=== PATIENT | female | born 1965 | race Caucasian/White ===

== ENCOUNTER 2016-09-03 17:26 | Emergency (ER) | payer MEDICAID ==
[~2016-09-03] VITALS: Ht 165.1 cm; Wt 56.5 kg
[2016-09-03 17:32] VITALS: Ht 165.1 cm; Wt 56.5 kg
[2016-09-03 18:29] LABS: ADD UMIC YES; URINE BILIRUBIN (Dip) NEGATIVE (NEGATIVE); URINE BLOOD (Dip) TRACE (NEGATIVE); URINE COLOR AMBER (YELLOW); URINE KETONES (Dip) NEGATIVE (NEGATIVE); URINE LEUKOCYTE ESTERASE (Dip) NEGATIVE (NEGATIVE); URINE NITRITE (Dip) POSITIVE (NEGATIVE); URINE TOTAL PROTEIN (Dip) 4+ (NEGATIVE); URINE UROBILINOGEN (Dip) 4.0 E.U./dL (0.1-1.0)
[2016-09-03] MEDS ORDERED: HYDROmorphONE 1 MG/ML SYG IV STA (18:46)
[2016-09-03] MEDS ORDERED: ONDANSETRON 4 MG INJ IV STA (18:46)
[2016-09-03 18:50] LABS: BACTERIA,URINE FEW; SQUAMOUS EPITHELIAL CELL,UR MODERATE
[2016-09-03 19:02] LABS: ADD SCAN DIFF NO
[2016-09-03 19:06] LABS: BASOPHILS % 0.3 % (0.0-2.0); EOSINOPHILS % 0.3 % (0.0-7.0); HEMATOCRIT 34.6 % (37.0-47.0); HEMOGLOBIN 10.9 g/dl (12.0-16.0); LYMPHOCYTES # 2.2 10^3/ul (0.8-2.9); LYMPHOCYTES % 18.1 % (15.0-51.0); MEAN CORPUSCULAR HEMOGLOBIN 24.7 pg (29.0-33.0); MEAN CORPUSCULAR HGB CONC 31.5 g/dl (32.0-37.0); MEAN CORPUSCULAR VOLUME 78.5 fl (82.0-101.0); MEAN PLATELET VOLUME 10.3 fl (7.4-10.4); MONOCYTE # 0.9 10^3/ul (0.3-0.9); MONOCYTES % 7.8 % (0.0-11.0); NEUTROPHIL # 8.8 10^3/ul (1.6-7.5); PLATELET COUNT 340 10^3/UL (140-415); RED BLOOD COUNT 4.41 10^6/ul (4.20-5.40); RED CELL DISTRIBUTION WIDTH 15.7 % (11.5-14.5)
[2016-09-03 19:12] LABS: ALBUMIN 4.9 g/dl (3.3-4.9); POTASSIUM 3.8 mmol/L (3.5-5.1)
[2016-09-03 19:14] LABS: BILIRUBIN,INDIRECT 0.6 mg/dl (0-1.1); BILIRUBIN,TOTAL 0.6 mg/dl (0.2-1.3); CREATININE 0.7 mg/dl (0.44-1.00)
[2016-09-03 19:15] LABS: ALBUMIN/GLOBULIN RATIO 1.36; CALCIUM 9.7 mg/dl (8.4-10.2); TOTAL PROTEIN 8.5 g/dl (6.1-8.1)
[2016-09-03] MEDS ORDERED: IOHEXOL 300MG/ML 150 ML BTL ONE (21:08)
[2016-09-03] MEDS ORDERED: SOD CHLORIDE 0.9% 100 ML ONE (21:08)
[2016-09-03] MEDS ORDERED: PHEN-538 PO (21:12)
[2016-09-03] MEDS ORDERED: CIPR500T4 PO (21:12)
[2016-09-03] MEDS ORDERED: HYDR-902 PO (21:12)
--- NOTE | 2016-09-03 21:14 | ERD ---
ER Documentation Chief Complaint Date/Time DATE: 09/03/16 TIME: 21:12 Chief Complaint URINARY RETENTION SENT BY PMD HPI This a 51-year-old female who is sent from clinic with a rule out of urinary retention. The patient states for 2 days she has had some urinary frequency and is having low volume voids. She says she feels like she cannot urinate at this moment. She is complaining of some moderate to severe suprapubic pain. No back pain no fever no nausea vomiting or other abdominal pain. Pain is a constant burning-like sensation without radiation. She had a urinalysis done at the clinic that showed urinary tract infection ROS All systems reviewed and are negative except as per history of present illness. Medications Home Meds Active Scripts Ciprofloxacin Hcl* (Ciprofloxacin Hcl*) 500 Mg Tablet, 500 MG PO BID for 10 Days , TAB Prov:ALTAF REN DO 09/03/16 Hydrocodone/Acetaminophen (Map[place]st 10-325 Tablet) 1 Each Tablet, 1 TAB PO Q6H Y for PAIN, #20 TAB Prov:ALTAF REN DO 09/03/16 Phenazopyridine Hcl* (Pyridium*) 200 Mg Tab, 200 MG PO TID Y for URINARY PAIN, # 6 TAB Prov:ALTAF REN DO 09/03/16 PMhx/Soc Medical and Surgical Hx: pt denies Surgical Hx History of Surgery: No Anesthesia Reaction: No Hx Neurological Disorder: No Hx Respiratory Disorders: No Hx Cardiac Disorders: Yes (htn) Hx Psychiatric Problems: No Hx Miscellaneous Medical Probl: Yes (hypothyroidism) Hx Alcohol Use: No Hx Substance Use: No Hx Tobacco Use: No Smoking Status: Never smoker FmHx Family History: No coronary disease Physical Exam Vitals Vital Signs Date Time Temp Pulse Resp B/P Pulse Ox O2 Delivery O2 Flow Rate FiO2 09/03/16 21:00 85 15 132/99 99 Room Air 09/03/16 20:00 84 15 127/97 97 Room Air 09/03/16 18:29 98.5 77 16 138/83 100 Room Air 09/03/16 17:32 98.6 87 18 131/79 98 Physical Exam Const: Well-developed, well-nourished Head: Atraumatic, normocephalic Eyes: Normal Conjunctiva, PERRLA, EOMI, normal sclera, no nystagmus ENT: Normal External Ears, Nose and Mouth, moist mucus membranes. Neck: Full range of motion. No meningismus, no lymphadenopathy. Resp: Clear to auscultation bilaterally, no wheezing, rhonchi, rales Cardio: Regular rate and rhythm, no murmurs, S1 S2 present Abd: Soft, tender suprapubic region with a palpable fibroid, non distended. Normal bowel sounds, no guarding or rebound, no pulsitile abdominal masses or bruits Skin: No petechiae or rashes, no ecchymosis , no maculopapular rash Back: No midline or flank tenderness Ext: No cyanosis, or edema, FROM x 4, normal inspection, neurovascularly intact x 4 Neur: Awake and alert, STR 5/5 x 4, sensation intact x 4, no focal findings, cerebellum intact Psych: Normal Mood and Affect Result Diagram: 09/03/16 1845 09/03/16 1845 Results 24 hrs Laboratory Tests Test 09/03/16 18:10 09/03/16 18:45 Urine Color JASMYNE Urine Clarity SLIGHTLY CLOUDY Urine pH 8.5 Urine Specific Frannie 1.015 Urine Ketones NEGATIVE Urine Nitrite POSITIVE Urine Bilirubin NEGATIVE Urine Urobilinogen 4.0 E.U./dL Urine Leukocyte Esterase NEGATIVE Urine Microscopic RBC 2-5/HPF Urine Microscopic WBC 5-10/HPF Urine Squamous Epithelial Cells MODERATE Urine Bacteria FEW Urine Hemoglobin TRACE Urine Glucose 0.1%% Urine Total Protein 4+ White Blood Count 12.010^3/ul Red Blood Count 4.4110^6/ul Hemoglobin 10.9g/dl Hematocrit 34.6% Mean Corpuscular Volume 78.5fl Mean Corpuscular Hemoglobin 24.7pg Mean Corpuscular Hemoglobin Concent 31.5g/dl Red Cell Distribution Width 15.7% Platelet Count 66914^3/UL Mean Platelet Volume 10.3fl Neutrophils % 73.0% Lymphocytes % 18.1% Monocytes % 7.8% Eosinophils % 0.3% Basophils % 0.3% Nucleated Red Blood Cells % 0.0/100WBC Neutrophils # 8.810^3/ul Lymphocytes # 2.210^3/ul Monocytes # 0.910^3/ul Eosinophils # 0.010^3/ul Basophils # 0.010^3/ul Nucleated Red Blood Cells # 0.010^3/ul Sodium Level 137mmol/L Potassium Level 3.8mmol/L Chloride Level 102mmol/L Carbon Dioxide Level 22mmol/L Anion Gap 17 Blood Urea Nitrogen 9mg/dl Creatinine 0.70mg/dl Glucose Level 86mg/dl Calcium Level 9.7mg/dl Total Bilirubin 0.6mg/dl Direct Bilirubin 0.00mg/dl Indirect Bilirubin 0.6mg/dl Aspartate Amino Transf (AST/SGOT) 24IU/L Alanine Aminotransferase (ALT/SGPT) 22IU/L Alkaline Phosphatase 85IU/L Total Protein 8.5g/dl Albumin 4.9g/dl Globulin 3.60g/dl Albumin/Globulin Ratio 1.36 Current Medications Medications (Trade) Dose Ordered Sig/Mary Route PRN Reason Start Time Stop Time Status Last Admin Dose Admin Hydromorphone HCl (Dilaudid) 1 mg ONCE STAT IV 09/03/16 18:46 09/03/16 18:48 DC 09/03/16 18:55 Ondansetron HCl (Zofran Inj) 4 mg ONCE STAT IV 09/03/16 18:46 09/03/16 18:48 DC 09/03/16 18:54 IV Flush 10 ml 10 ml STK-MED ONCE .ROUTE 09/03/16 21:08 09/03/16 21:09 DC Sodium Chloride (NS) 100 ml @ ud STK-MED ONCE .ROUTE 09/03/16 21:08 09/03/16 21:09 DC Iohexol (Omnipaque 300mg/ ml) 150 ml STK-MED ONCE .ROUTE 09/03/16 21:08 09/03/16 21:09 DC Procedures/MDM Schaefer catheter was placed 9 25 cc of urine was expressed. She is given pain control intravenously. Patient had a CT scan of the abdomen and pelvis which is currently pending of his normal will discharge home with Pyridium, Maplecrest and Cipro for UTI/cystitis. Departure Diagnosis: Primary Impression: Cystitis Condition: Stable Patient Instructions: ALTAF Perez DO Sep 03, 2016 21:14
--- NOTE | 2016-09-03 22:58 | RADRPT ---
PROCEDURE: CT Abdomen and pelvis with contrast. CLINICAL INDICATION: Abdominal pain. TECHNIQUE: CT scan of the abdomen and pelvis with contrast was performed on a multi-detector high -resolution CT scanner. The patient was scanned following the uncomplicated intravenous administrat ion of 100 cc of Omnipaque 300. Coronal and sagittal reformatted images were obtained from the axia l source images. Images were reviewed on a high-resolution PACS workstation. One or more of the following dose reduction techniques were used: - Automated exposure control. - Adjustment of the mA and/or kV according to patient size. - Use of iterative reconstruction technique. Exam CTD/vol = 7.49 mGy. Total exam DLP = 385.85 mGy-cm. COMPARISON: None. FINDINGS: Evaluation of the lung bases demonstrates mild bibasilar atelectasis. Abdomen: The liver is normal in size. There is no focal mass or dilatation of the biliary tree. T he gallbladder is not distended. The spleen, pancreas and bilateral adrenal glands are within laura l limits. Bilateral kidneys are normal in size with symmetric enhancement. There is no focal renal mass identified. There is mild to moderate right-sided hydronephrosis with mild perinephric fluid and stranding suggesting pyelocaliceal rupture. There is mild right periureteral stranding and flui d as well extending into the right lower abdomen. There is no retroperitoneal adenopathy. The abdo vania aorta is of normal caliber. There is no abnormal bowel wall thickening or distension. There is no bowel obstruction or free air . A normal appendix is identified. There is no diverticulosis or diverticulitis. Pelvis: The bladder contains a Schaefer catheter. The uterus is enlarged and contains multiple large fibroids with the largest measuring 9.0 x 8.4 cm. There is mass effect upon the right ureter. There is no significant pelvic adenopathy. There is mild pelvic free fluid. Evaluation of the osseous structures demonstrates no suspicious lytic or blastic lesion. IMPRESSION: Enlarged uterus with multiple large fibroids. There is mass effect upon the right ureter resulting in mild to moderate hydronephrosis. There is mild right perinephric fluid and stranding suggesting pyelocaliceal rupture. Mild right lower quadrant and pelvic free fluid. Mild bibasilar atelectasis. .Keegan Mcdaniel MD, MD Date Time Electronically viewed and signed by .Keegan Mcdaniel MD, MD on 09/03/2016 22:58 .T/
[2016-09-04 00:09] VITALS: BP 122/92; PULSE 82; RESP 15; TEMP 98.1
[2016-09-05] MEDS ORDERED: NAPR-260 PO (00:14)
[2016-09-05] MEDS ORDERED: ONDA4TAB14 PO (00:14)
== END 2016-09-04 00:12 | disposition home or self-care (01) ==
LOC: E/R 17:26
DX: N30.90 Cystitis, unspecified without hematuria (principal); I10 Essential (primary) hypertension; E03.9 Hypothyroidism, unspecified; R40.2142 Coma scale, eyes open, spontaneous, at arrival to emergency department; R40.2362 Coma scale, best motor response, obeys commands, at arrival to emergency department; R40.2252 Coma scale, best verbal response, oriented, at arrival to emergency department
CPT/HCPCS: 51702; 74177; 80053; 81001; 85025; 87086; J1170; J2405; Q9967; Z7610; 36415; 81003; 96374; 96375

== ENCOUNTER 2016-09-04 21:40 | Emergency (ER) | payer MEDICAID ==
[~2016-09-04] VITALS: Ht 157.5 cm; Wt 58.0 kg
[~2016-09-04 21:40] MED LIST: CIPR500T4 PO; HYDR-902 PO; PHEN-538 PO
[2016-09-04 21:44] VITALS: Ht 157.5 cm; Wt 58.0 kg
[2016-09-04] MEDS ORDERED: ONDANSETRON 4 MG INJ IV STA (22:40)
[2016-09-04] MEDS ORDERED: SOD CHLORIDE 0.9% 1,000 ML IV STA (22:40)
[2016-09-04] MEDS ORDERED: morphine 4 MG/ML VIAL IV STA (22:40)
[2016-09-04 23:32] LABS: ADD SCAN DIFF NO
[2016-09-04 23:42] LABS: BASOPHILS % 0.3 % (0.0-2.0); EOSINOPHILS % 0.3 % (0.0-7.0); LYMPHOCYTES # 1.8 10^3/ul (0.8-2.9); LYMPHOCYTES % 17.4 % (15.0-51.0); MEAN CORPUSCULAR HEMOGLOBIN 24.9 pg (29.0-33.0); MEAN CORPUSCULAR HGB CONC 31.3 g/dl (32.0-37.0); MEAN CORPUSCULAR VOLUME 79.6 fl (82.0-101.0); MEAN PLATELET VOLUME 10.2 fl (7.4-10.4); MONOCYTE # 0.9 10^3/ul (0.3-0.9); MONOCYTES % 8.6 % (0.0-11.0); NEUTROPHIL # 7.4 10^3/ul (1.6-7.5); NEUTROPHILS % 73.1 % (39.0-77.0); PLATELET COUNT 322 10^3/UL (140-415); RED BLOOD COUNT 4.02 10^6/ul (4.20-5.40); RED CELL DISTRIBUTION WIDTH 15.8 % (11.5-14.5); WHITE BLOOD COUNT 10.2 10^3/ul (4.8-10.8)
[2016-09-04 23:48] LABS: ADD UMIC YES; URINE BILIRUBIN (Dip) NEGATIVE (NEGATIVE); URINE BLOOD (Dip) NEGATIVE (NEGATIVE); URINE COLOR AMBER (YELLOW); URINE KETONES (Dip) 15 (NEGATIVE); URINE LEUKOCYTE ESTERASE (Dip) NEGATIVE (NEGATIVE); URINE NITRITE (Dip) POSITIVE (NEGATIVE); URINE TOTAL PROTEIN (Dip) 4+ (NEGATIVE); URINE UROBILINOGEN (Dip) >8.0 E.U./dL (0.1-1.0)
[2016-09-04 23:52] LABS: ALBUMIN 4.3 g/dl (3.3-4.9); ALBUMIN/GLOBULIN RATIO 1.43; BILIRUBIN,INDIRECT 0.6 mg/dl (0-1.1); BILIRUBIN,TOTAL 0.6 mg/dl (0.2-1.3); CALCIUM 9.1 mg/dl (8.4-10.2); CREATININE 0.63 mg/dl (0.44-1.00); TOTAL PROTEIN 7.3 g/dl (6.1-8.1)
[2016-09-05 00:03] LABS: BACTERIA,URINE FEW; SQUAMOUS EPITHELIAL CELL,UR MANY; URINE RBCS 0-2 /HPF (0)
[2016-09-05 00:04] LABS: MUCUS,URINE OCCASIONAL
[2016-09-05 00:13] VITALS: BP 135/90; PULSE 72; RESP 16
--- NOTE | 2016-09-05 00:13 | ERD ---
ER Documentation Chief Complaint Date/Time DATE: 09/05/16 TIME: 00:12 Chief Complaint abd pain and vomiting HPI This is a 51-year-old female was diagnosed a urinary tract infection yesterday and placed on Helen for pain control. Patient states that the pain in her vagina and pain on urination is since resolved, however the Helen has made her very nauseous both times she is taking it. At this point she comes in with complaints of nausea. No abdominal pain. No fevers no chills. No other current complaints. ROS All systems reviewed and are negative except as per history of present illness. Medications Home Meds Active Scripts Ciprofloxacin Hcl* (Ciprofloxacin Hcl*) 500 Mg Tablet, 500 MG PO BID for 10 Days , TAB Prov:GERTRUDE RENSTKYARAS A. DO 09/03/16 Hydrocodone/Acetaminophen (Helen 10-325 Tablet) 1 Each Tablet, 1 TAB PO Q6H Y for PAIN, #20 TAB Prov:LEKKOSGERTRUDESTOLOS A. DO 09/03/16 Phenazopyridine Hcl* (Pyridium*) 200 Mg Tab, 200 MG PO TID Y for URINARY PAIN, # 6 TAB Prov:JUAN COSGERTRUDESTOLOS A. DO 09/03/16 PMhx/Soc History of Surgery: No Anesthesia Reaction: No Hx Neurological Disorder: No Hx Respiratory Disorders: No Hx Cardiac Disorders: Yes (htn) Hx Psychiatric Problems: No Hx Miscellaneous Medical Probl: Yes (hypothyroidism) Hx Alcohol Use: No Hx Substance Use: No Hx Tobacco Use: No Physical Exam Vitals Vital Signs Date Time Temp Pulse Resp B/P Pulse Ox O2 Delivery O2 Flow Rate FiO2 09/04/16 21:44 98.3 90 20 123/85 96 Physical Exam Const: [] Head: Atraumatic Eyes: Normal Conjunctiva ENT: Normal External Ears, Nose and Mouth. Neck: Full range of motion..~ No meningismus. Resp: Clear to auscultation bilaterally Cardio: Regular rate and rhythm, no murmurs Abd: Soft, non tender, non distended. Normal bowel sounds Skin: No petechiae or rashes Back: No midline or flank tenderness Ext: No cyanosis, or edema Neur: Awake and alert Psych: Normal Mood and Affect Result Diagram: 09/04/16 2300 09/04/16 2300 Results 24 hrs Laboratory Tests Test 09/04/16 22:41 09/04/16 23:00 Urine Color JASMYNE Urine Clarity SLIGHTLY CLOUDY Urine pH 6.5 Urine Specific Duncan 1.020 Urine Ketones 15 Urine Nitrite POSITIVE Urine Bilirubin NEGATIVE Urine Urobilinogen >8.0 E.U./dL Urine Leukocyte Esterase NEGATIVE Urine Microscopic RBC 0-2/HPF Urine Microscopic WBC 0-2/HPF Urine Squamous Epithelial Cells MANY Urine Bacteria FEW Urine Mucus OCCASIONAL Urine Hemoglobin NEGATIVE Urine Glucose 0.25%% Urine Total Protein 4+ White Blood Count 10.210^3/ul Red Blood Count 4.0210^6/ul Hemoglobin 10.0g/dl Hematocrit 32.0% Mean Corpuscular Volume 79.6fl Mean Corpuscular Hemoglobin 24.9pg Mean Corpuscular Hemoglobin Concent 31.3g/dl Red Cell Distribution Width 15.8% Platelet Count 89258^3/UL Mean Platelet Volume 10.2fl Neutrophils % 73.1% Lymphocytes % 17.4% Monocytes % 8.6% Eosinophils % 0.3% Basophils % 0.3% Nucleated Red Blood Cells % 0.0/100WBC Neutrophils # 7.410^3/ul Lymphocytes # 1.810^3/ul Monocytes # 0.910^3/ul Eosinophils # 0.010^3/ul Basophils # 0.010^3/ul Nucleated Red Blood Cells # 0.010^3/ul Sodium Level 131mmol/L Potassium Level 4.0mmol/L Chloride Level 101mmol/L Carbon Dioxide Level 24mmol/L Anion Gap 10 Blood Urea Nitrogen 13mg/dl Creatinine 0.63mg/dl Glucose Level 121mg/dl Calcium Level 9.1mg/dl Total Bilirubin 0.6mg/dl Direct Bilirubin 0.00mg/dl Indirect Bilirubin 0.6mg/dl Aspartate Amino Transf (AST/SGOT) 16IU/L Alanine Aminotransferase (ALT/SGPT) 26IU/L Alkaline Phosphatase 87IU/L Total Protein 7.3g/dl Albumin 4.3g/dl Globulin 3.00g/dl Albumin/Globulin Ratio 1.43 Lipase 67U/L Current Medications Medications (Trade) Dose Ordered Sig/Mary Route PRN Reason Start Time Stop Time Status Last Admin Dose Admin Sodium Chloride (NS) 1,000 ml @ 1,000 mls/hr Q1H STAT IV 09/04/16 22:40 09/04/16 23:39 DC 09/04/16 22:57 Morphine Sulfate (morphine) 4 mg ONCE STAT IV 09/04/16 22:40 09/04/16 22:41 DC 09/04/16 22:57 Ondansetron HCl (Zofran Inj) 4 mg ONCE STAT IV 09/04/16 22:40 09/04/16 22:41 DC 09/04/16 22:57 Procedures/MDM Medical decision-making: Is a 51-year-old female who is essentially coming in for medication reaction. I have discontinued the use of her Helen. Patient was transferred over to [facility] for pain. Continue to take Cipro and Zofran. Follow-up with PMD. Return for worsening symptoms. Follow-up in 8 hours for serial abdominal examinations Departure Diagnosis: Primary Impression: Abdominal pain Abdominal location: unspecified location Qualified Code: R10.9 - Abdominal pain, unspecified location Condition: Stable MARIELA PEGUERO Sep 05, 2016 00:13
[2016-09-05] MEDS ORDERED: NAPR-260 PO (00:14)
[2016-09-05] MEDS ORDERED: ONDA4TAB14 PO (00:14)
== END 2016-09-05 00:28 | disposition home or self-care (01) ==
LOC: E/R 21:40
DX: R10.9 Unspecified abdominal pain (principal); R40.2142 Coma scale, eyes open, spontaneous, at arrival to emergency department; R40.2252 Coma scale, best verbal response, oriented, at arrival to emergency department; R40.2362 Coma scale, best motor response, obeys commands, at arrival to emergency department; I10 Essential (primary) hypertension; E03.9 Hypothyroidism, unspecified; R11.10 Vomiting, unspecified
CPT/HCPCS: 80053; 81001; 83690; 85025; J2270; J2405; J7030; 36415; 81003; 96374; 96375

== ENCOUNTER 2016-10-15 13:00 | Emergency (ER) | payer MEDICAID ==
[~2016-10-15] VITALS: Wt 50.0 kg
[~2016-10-15 13:00] MED LIST changes: +NAPR-260 PO; +ONDA4TAB14 PO
--- NOTE | 2016-10-15 14:02 | RADRPT ---
PROCEDURE: CT brain without contrast CLINICAL INDICATION: Headache. Fall. TECHNIQUE: CT scan of the Brain without contrast was performed on the high-resolution multi-slice CT scanner. Contiguous 5 mm slice thickness transaxial images were acquired from the high vertex to the foramen magnum. The images were reviewed on a PACS workstation. CTDI equals 45 mGy. Total exam DLP equals 720 mGy-cm. COMPARISON: No prior studies are available for comparison. FINDINGS: There is no evidence of intracranial hemorrhage, mass effect or midline shift. There is no cerebral edema or hydrocephalus. There are no abnormal intra-axial or extra-axial fluid collections. The basilar cisterns are patent. The nunez-white junction is preserved. The visualized paranasal sinuses and mastoid air cells are clear. The orbits are unremarkable. The calvarium is intact. No scalp abnormalities are seen. IMPRESSION: 1. No acute intracranial abnormality identified. RPTAT: QQ .Sharad Alexander MD, MD Date Time Electronically viewed and signed by .Sharad Alexander MD, on 10/15/2016 14:01 .Tramaine
[2016-10-15] MEDS ORDERED: ACET500C5 PO (14:07)
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
[2016-10-15 14:30] VITALS: BP 133/62; PULSE 65; RESP 18
== END 2016-10-15 14:31 | disposition home or self-care (01) ==
LOC: FTE 13:00
DX: S09.90XA Unspecified injury of head, initial encounter (principal); I10 Essential (primary) hypertension; E03.9 Hypothyroidism, unspecified; R51 Headache; Y08.89XA Assault by other specified means, initial encounter
CPT/HCPCS: 70450

== ENCOUNTER 2016-10-19 19:39 | Emergency (ER) | payer MEDICAID ==
[~2016-10-19] VITALS: Ht 162.6 cm; Wt 58.0 kg
[~2016-10-19 19:39] MED LIST changes: +ACET500C5 PO
[2016-10-19 19:42] VITALS: Ht 162.6 cm; Wt 58.0 kg
[2016-10-19] MEDS ORDERED: HYDROCODONE/APAP (5/325) TAB PO ONE (21:30)
[2016-10-19] MEDS ORDERED: IBUPROFEN 800 MG TAB PO ONE (22:00)
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
[2016-10-19] MEDS ORDERED: TRAM50TA2 PO (23:22)
[2016-10-19] MEDS ORDERED: AMOX1TAB10 PO (23:23)
[2016-10-19] MEDS ORDERED: NAPR-260 PO (23:23)
[2016-10-19 23:33] VITALS: BP 137/89; PULSE 77; RESP 16
== END 2016-10-19 23:35 | disposition home or self-care (01) ==
LOC: FTE 19:39
DX: S59.911A Unspecified injury of right forearm, initial encounter (principal); S29.001A Unspecified injury of muscle and tendon of front wall of thorax, initial encounter; I10 Essential (primary) hypertension; E03.9 Hypothyroidism, unspecified; Y08.89XA Assault by other specified means, initial encounter
CPT/HCPCS: 73090; 73130; Z7610

== ENCOUNTER 2016-11-22 19:40 | Emergency (ER) | END 2016-11-22 20:17 | disposition home or self-care (01) | DX: M54.2 Cervicalgia (principal); M62.838 Other muscle spasm; I10 Essential (primary) hypertension; E03.9 Hypothyroidism, unspecified | CPT/HCPCS: Z7502; Z7610 ==

== ENCOUNTER 2016-12-26 20:04 | Emergency (ER) | payer MEDICAID ==
[~2016-12-26] VITALS: Ht 162.6 cm; Wt 59.0 kg
[~2016-12-26 20:04] MED LIST changes: +AMOX1TAB10 PO; +CYCL-319 PO; +TRAM50TA2 PO
[2016-12-26 20:06] VITALS: Ht 162.6 cm; Wt 59.0 kg
[2016-12-26] MEDS ORDERED: BENZ100C70 PO (23:22)
[2016-12-26] MEDS ORDERED: IBUP400T22 PO (23:22)
[2016-12-26] MEDS ORDERED: GUAI-637 PO (23:22)
[2016-12-26] MEDS ORDERED: CETI10CA PO (23:23)
--- NOTE | 2016-12-26 23:28 | ERD ---
ER Documentation Chief Complaint Date/Time DATE: 12/26/16 TIME: 23:25 Chief Complaint cough w/ fever x 1 day HPI Patient is a 51-year-old female who presents to the emergency department for concerns of a cough and fever which started earlier today. Patient states that her cough is dry in nature. Patient also reports clear rhinorrhea. Patient denies any ear pain or throat pain. Patient denies any abdominal pain, nausea, vomiting or diarrhea. She denies any chest pain, shortness of breath, left upper extremity pain or loss consciousness. Patient denies any sick contacts or recent travel. ROS All systems reviewed and are negative except as per history of present illness. Medications Home Meds Active Scripts Cetirizine Hcl* (Zyrtec*) 10 Mg Capsule, 10 MG PO DAILY, #20 TAB.CHEW Prov:REGLA APODACA PA-C 12/26/16 Benzonatate* (Tessalon Perle*) 100 Mg Capsule, 100 MG PO Q8H Y for COUGH, #20 CAP Prov:REGLA APODACA PA-C 12/26/16 Guaifenesin* (Robitussin*) 100 Mg/5 Ml Syrup, 100 MG PO Q4H Y for COUGH, #1 BOT Prov:REGLA APODACA PA-C 12/26/16 Ibuprofen* (Motrin*) 400 Mg Tab, 400 MG PO Q6, #30 TAB Prov:REGLA APODACA PA-C 12/26/16 Cyclobenzaprine Hcl* (Cyclobenzaprine Hcl*) 10 Mg Tablet, 10 MG PO Q12 Y for muscle spasms, #20 TAB Prov:NÉSTOR ROCK 11/22/16 Amoxicillin/Potassium Clav (Amox-Clav 875-125 mg Tablet) 875-125 mg Tab, 1 TAB PO BID for 7 Days, #7 TAB Prov:SILVA LEMUS PA-C 10/19/16 Naproxen* (Naprosyn*) 500 Mg Tablet, 500 MG PO BID Y for PAIN AND/OR INFLAMMATION, #30 TAB Prov:SILVA LEMUS PA-C 10/19/16 Tramadol HCl (Tramadol HCl) 50 Mg Tablet, 50 MG PO Q4 Y for PAIN, #20 TAB Prov:SILVA LEMUS PA-C 10/19/16 Acetaminophen* (Tylophen*) 500 Mg Capsule, 1 CAP PO Q6H Y for PAIN AND OR ELEVATED TEMP, #15 CAP Prov:BONG GRULLON MD 10/15/16 Ondansetron (Ondansetron Odt) 4 Mg Tab.rapdis, 4 MG PO Q6H Y for NAUSEA AND/OR VOMITING, #10 TAB Prov:MARIELA PEGUERO S. 09/05/16 Naproxen* (Naprosyn*) 500 Mg Tablet, 500 MG PO BID Y for PAIN AND/OR INFLAMMATION, #30 TAB Prov:MARIELA PEGUERO S. 09/05/16 Ciprofloxacin Hcl* (Ciprofloxacin Hcl*) 500 Mg Tablet, 500 MG PO BID for 10 Days , TAB Prov:JUAN COSGERTRUDESTKYARAS Lew DO 09/03/16 Hydrocodone/Acetaminophen ([place] 10-325 Tablet) 1 Each Tablet, 1 TAB PO Q6H Y for PAIN, #20 TAB Prov:DRISSKKOSGERTRUDESTOLOS ARoger DO 09/03/16 Phenazopyridine Hcl* (Pyridium*) 200 Mg Tab, 200 MG PO TID Y for URINARY PAIN, # 6 TAB Prov:LEKKOS,APOSTOLOS A. DO 09/03/16 Allergies Allergies: Coded Allergies: No Known Allergy (Unverified , 10/19/16) PMhx/Soc History of Surgery: No Anesthesia Reaction: No Hx Neurological Disorder: No Hx Respiratory Disorders: No Hx Cardiac Disorders: Yes (htn) Hx Psychiatric Problems: No Hx Miscellaneous Medical Probl: Yes (hypothyroidism) Hx Alcohol Use: No Hx Substance Use: No Hx Tobacco Use: No Smoking Status: Never smoker Physical Exam Vitals Vital Signs Date Time Temp Pulse Resp B/P Pulse Ox O2 Delivery O2 Flow Rate FiO2 12/26/16 20:06 99.7 82 20 121/80 100 Physical Exam GENERAL: Well-developed, well-nourished female. Appears in no acute distress. Eating in full sentences. No abdominal retractions or nasal flaring. No tripoding. HEAD: Normocephalic, atraumatic. No deformities or ecchymosis. EYE: Pupils equal, round, and reactive to light. EOMs intact. No conjunctival erythema. No eye discharge. ENT: External ear without any masses or tenderness. Auditory canals clear bilaterally. TM visualized bilaterally, non-erythematous, non-bulging. Nasal mucosa pink with no discharge. Oropharynx is pink without any tonsillar erythema or exudates. No uvula deviation. No kissing tonsils. Tender to palpation of bilateral mastoid processes. NECK: Supple. No meningismus. Normal ROM of the neck. LUNG: Clear to auscultation bilaterally. No rhonchi, wheezing, rales or coarse breath sounds. HEART: Regular rate and rhythm. No murmurs, rubs or gallops. EXTREMITES: Equal pulses bilaterally. No peripheral clubbing, cyanosis or edema. No unilateral leg swelling. NEUROLOGIC: Alert and oriented to person, place and time. Moving all four extremities. 5/5 strength in all extremities. Normal speech. Steady gait. SKIN: Normal color. Warm and dry. No rashes or lesions. Procedures/MDM MEDICAL DECISION MAKING: This is a 51-year-old female who presents with a cough and rhinorrhea 1 day. Vital signs were reviewed. Patient was afebrile. Patient was not hypoxic. ENT exam was normal. Lung exam was normal. Given these findings, the patients presentation is most consistent with viral URI. I have a much lower clinical concern for bacterial infections including pneumonia, meningitis, sinusitis, otitis externa, acute otitis media, strep pharyngitis, epiglottitis or peritonsillar abscess. Patient was requesting antibiotics. Explained to the patient given that her symptoms only been present for 1 day there is no indication for antibiotics at this time. Patient should continue monitor symptoms. Patient symptoms persist she should follow-up with her primary care physician and return here for additional workup. PRESCRIPTIONS: Ibuprofen, Robitussin, Tessalon Perles, Zyrtec DISCHARGE: At this time, patient is stable for discharge and outpatient management. Supportive therapies such as OTC throat lozenges, salt water gurgles, popsicles and jello discussed. I have instructed the patient to follow-up with his/her primary care physician in 1-2 days. I have instructed the patient to promptly return to the ER for any new or worsening symptoms including increased pain, swelling, fever, nausea, vomiting, weakness or difficulty breathing. The patient and/or family expressed understanding of and agreement with this plan. All questions were answered. Home care instructions were provided. Disclaimer: Inadvertent spelling and grammatical errors are likely due to EHR/ dictation software use and do not reflect on the overall quality of patient care. Also, please note that the electronic time recorded on this note does not necessarily reflect the actual time of the patient encounter. Departure Diagnosis: Primary Impression: URI, acute Condition: Stable Patient Instructions: Uri, Viral, No Abx (Adult) Referrals: [facility] YOU HAVE RECEIVED A MEDICAL SCREENING EXAM AND THE RESULTS INDICATE THAT YOU DO NOT HAVE A CONDITION THAT REQUIRES URGENT TREATMENT IN THE EMERGENCY DEPARTMENT. FURTHER EVALUATION AND TREATMENT OF YOUR CONDITION CAN WAIT UNTIL YOU ARE SEEN IN YOUR DOCTORS OFFICE WITHIN THE NEXT 1-2 DAYS. IT IS YOUR RESPONSIBILITY TO MAKE AN APPOINTMENT FOR FOLOW-UP CARE. IF YOU HAVE A PRIMARY DOCTOR --you should call your primary doctor and schedule an appointment IF YOU DO NOT HAVE A PRIMARY DOCTOR YOU CAN CALL OUR PHYSICIAN REFERRAL HOTLINE AT IF YOU CAN NOT AFFORD TO SEE A PHYSICIAN YOU CAN CHOSE FROM THE FOLLOWING [facility] [address] [facility]. [facility] [address] [facility] [address] [facility] [address] [facility] [address] [facility]. [facility]. [address] [facility]. [facility] YOU HAVE RECEIVED A MEDICAL SCREENING EXAM AND THE RESULTS INDICATE THAT YOU DO NOT HAVE A CONDITION THAT REQUIRES URGENT TREATMENT IN THE EMERGENCY DEPARTMENT. FURTHER EVALUATION AND TREATMENT OF YOUR CONDITION CAN WAIT UNTIL YOU ARE SEEN IN YOUR DOCTORS OFFICE WITHIN THE NEXT 1-2 DAYS. IT IS YOUR RESPONSIBILITY TO MAKE AN APPOINTMENT FOR FOLOW-UP CARE. IF YOU HAVE A PRIMARY DOCTOR --you should call your primary doctor and schedule and appointment IF YOU DO NOT HAVE A PRIMARY DOCTOR YOU CAN CALL OUR PHYSICIAN REFERRAL HOTLINE AT . IF YOU CAN NOT AFFORD TO SEE A PHYSICIAN YOU CAN CHOSE FROM THE FOLLOWING [facility]: [facility] [address] [place] [address] [facility] [address] [place] [address] [facility] [address] [place] [address] Additional Instructions: Call your primary care doctor TOMORROW for an appointment during the next 1-2 days.See the doctor sooner or return here if your condition worsens before your appointment time. REGLA APODACA PA-C Dec 26, 2016 23:28
[2016-12-26 23:31] VITALS: BP 127/80; RESP 17; TEMP 99
[2016-12-27] MEDS ORDERED: FLUC150T17 PO (19:20)
[2016-12-27] MEDS ORDERED: MICO100S4 VG (19:20)
== END 2016-12-26 23:33 | disposition home or self-care (01) ==
LOC: FTE 20:04
DX: J06.9 Acute upper respiratory infection, unspecified (principal); I10 Essential (primary) hypertension; E03.9 Hypothyroidism, unspecified
CPT/HCPCS: 99283

== ENCOUNTER 2016-12-27 16:45 | Emergency (ER) | payer MEDICAID ==
[~2016-12-27] VITALS: Ht 160 cm; Wt 58.5 kg
[~2016-12-27 16:45] MED LIST changes: +BENZ100C70 PO; +CETI10CA PO; +GUAI-637 PO; +IBUP400T22 PO
[2016-12-27 16:59] VITALS: Ht 160 cm; Wt 58.5 kg
[2016-12-27 19:07] LABS: URINE BLOOD (Dip) POC Negative (NEGATIVE)
[2016-12-27] MEDS ORDERED: MICO100S4 VG (19:20)
[2016-12-27] MEDS ORDERED: FLUC150T17 PO (19:20)
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
[2016-12-27 20:41] VITALS: BP 112/71; PULSE 62; RESP 16
== END 2016-12-27 20:42 | disposition home or self-care (01) ==
LOC: FTE 16:45
DX: R39.89 Other symptoms and signs involving the genitourinary system (principal); I10 Essential (primary) hypertension; E03.9 Hypothyroidism, unspecified
CPT/HCPCS: 81003; 87086; 87591; 99284

== ENCOUNTER 2017-01-25 12:13 | Emergency (ER) | payer MEDICAID ==
[~2017-01-25] VITALS: Ht 154.9 cm; Wt 55.5 kg
[~2017-01-25 12:13] MED LIST changes: +FLUC150T17 PO; +MICO100S4 VG
[2017-01-25 12:20] VITALS: Ht 154.9 cm; Wt 55.5 kg
--- NOTE | 2017-01-25 13:39 | ERD ---
ER Documentation Chief Complaint Date/Time DATE: 01/25/17 TIME: 13:29 Chief Complaint neck pain since yesterday, ran out of flexeril HPI 51-year-old female with history of neck muscle spasm presented to ED today for refill of Flexeril. She was given prescription for Flexeril about 1 month ago here. Patient stated that had helped with her pain. She ran out of medication last night, started experience neck pain again. She has not seen a PCP for her neck pain. She had not tried any pain relief modalities other than using the medications. Denies any trauma to the neck. Denies radicular pain. Denies numbness or tingling in the extremities. ROS All systems reviewed and are negative except as per history of present illness. Medications Home Meds Active Scripts Cyclobenzaprine Hcl* (Cyclobenzaprine Hcl*) 10 Mg Tablet, 10 MG PO TID, #15 TAB Prov:REGLA APODACA PA-C 01/02/17 Miconazole Nitrate (Miconazole 7) 100 Mg Supp.vag, 100 MG VG QHS, #7 SUPP.VAG Prov:CINTHYA JACKSON PA-C 12/27/16 Fluconazole* (Diflucan*) 150 Mg Tablet, 150 MG PO ONCE, #1 TAB Prov:CINTHYA JACKSON PA-C 12/27/16 Cetirizine Hcl* (Zyrtec*) 10 Mg Capsule, 10 MG PO DAILY, #20 TAB.CHEW Prov:REGLA APODACA PA-C 12/26/16 Benzonatate* (Tessalon Perle*) 100 Mg Capsule, 100 MG PO Q8H Y for COUGH, #20 CAP Prov:REGLA APODACA PA-C 12/26/16 Guaifenesin* (Robitussin*) 100 Mg/5 Ml Syrup, 100 MG PO Q4H Y for COUGH, #1 BOT Prov:REGLA APODACA PA-C 12/26/16 Ibuprofen* (Motrin*) 400 Mg Tab, 400 MG PO Q6, #30 TAB Prov:REGLA APODACA PA-C 12/26/16 Cyclobenzaprine Hcl* (Cyclobenzaprine Hcl*) 10 Mg Tablet, 10 MG PO Q12 Y for muscle spasms, #20 TAB Prov:NÉSTOR ROCK 11/22/16 Amoxicillin/Potassium Clav (Amox-Clav 875-125 mg Tablet) 875-125 mg Tab, 1 TAB PO BID for 7 Days, #7 TAB Prov:SILVA LEMUS PA-C 10/19/16 Naproxen* (Naprosyn*) 500 Mg Tablet, 500 MG PO BID Y for PAIN AND/OR INFLAMMATION, #30 TAB Prov:SILVA LEMUS PA-C 10/19/16 Tramadol HCl (Tramadol HCl) 50 Mg Tablet, 50 MG PO Q4 Y for PAIN, #20 TAB Prov:SILVA LEMUS PA-C 10/19/16 Acetaminophen* (Tylophen*) 500 Mg Capsule, 1 CAP PO Q6H Y for PAIN AND OR ELEVATED TEMP, #15 CAP Prov:BONG GRULLON MD 10/15/16 Ondansetron (Ondansetron Odt) 4 Mg Tab.rapdis, 4 MG PO Q6H Y for NAUSEA AND/OR VOMITING, #10 TAB Prov:MARIELA PEGUERO 09/05/16 Naproxen* (Naprosyn*) 500 Mg Tablet, 500 MG PO BID Y for PAIN AND/OR INFLAMMATION, #30 TAB Prov:MARIELA PEGUERO 09/05/16 Ciprofloxacin Hcl* (Ciprofloxacin Hcl*) 500 Mg Tablet, 500 MG PO BID for 10 Days , TAB Prov:ALTAF REN DO 09/03/16 Hydrocodone/Acetaminophen ([place] 10-325 Tablet) 1 Each Tablet, 1 TAB PO Q6H Y for PAIN, #20 TAB Prov:ALTAF REN DO 09/03/16 Phenazopyridine Hcl* (Pyridium*) 200 Mg Tab, 200 MG PO TID Y for URINARY PAIN, # 6 TAB Prov:ALTAF REN DO 09/03/16 Allergies Allergies: Coded Allergies: No Known Allergy (Unverified , 01/02/17) PMhx/Soc History of Surgery: No Anesthesia Reaction: No Hx Neurological Disorder: No Hx Respiratory Disorders: No Hx Cardiac Disorders: Yes (htn) Hx Psychiatric Problems: No Hx Miscellaneous Medical Probl: Yes (hypothyroidism) Hx Alcohol Use: No Hx Substance Use: No Hx Tobacco Use: No Physical Exam Vitals Vital Signs Date Time Temp Pulse Resp B/P Pulse Ox O2 Delivery O2 Flow Rate FiO2 01/25/17 12:20 98.9 94 18 127/83 98 Physical Exam General: Well-developed, well-nourished, conscious and coherent, in no distress Skin: Warm and dry without rash, good texture and turgor Head: Normocephalic without evidence of trauma Eyes: Sclera and conjunctivae normal; pupils equal, round, and reactive to light; extraocular movements are intact Neck: Supple without meningismus or adenopathy. Carotids are equal. Trachea midline. No bruits or JVD. Right sternocleidomastoid and bilateral trapezius muscle spasm and tenderness noted. No midline C-spine tenderness. Chest: Normal AP diameter. Good expansion without retractions. Nontender. Lungs are clear to auscultate bilaterally with good tidal volume Heart: Regular rate and rhythm. No murmur, rub, or gallops heard Extremities: Full range of motion. Good strength bilaterally. No clubbing, cyanosis, or edema. Peripheral pulses are intact. Sensation intact Neuro: Alert and oriented 4, GCS 15. Cranial nerves grossly intact. Motor and sensory exams nonfocal. Moves all extremities. Speech clear. Gait normal Procedures/MDM Well-appearing 43-year-old female with history of chronic neck muscle spasm presented ED for refill of Flexeril. Patient does not have any midline spinal tenderness. I doubt spinal fracture, subluxation, or disc herniation. I doubt spinal epidural abscess. Patient was seen here 1 month ago for the same and was given prescription of Flexeril. Advised patient that she cannot come back to the ER every month for her medication refills. She will need to follow-up with a PCP for any further medication refills. Patient became angry and eloped. Departure Diagnosis: Primary Impression: Medication refill Additional Impression: Neck muscle spasm Condition: Stable JOSE FRANCISCO BLUNT NP Jan 25, 2017 13:39
== END 2017-01-25 14:22 | disposition left against medical advice (07) ==
LOC: FTE 12:13
DX: Z76.0 Encounter for issue of repeat prescription (principal); M62.838 Other muscle spasm; I10 Essential (primary) hypertension; E03.9 Hypothyroidism, unspecified
CPT/HCPCS: 99281